=== PATIENT | female | born 1970 | race Caucasian/White ===

== ENCOUNTER → 2020-09-05 | Outpatient (CLI) | payer OTHER | END | disposition home or self-care (01) | LOC: CVU 13:01 | PROVIDERS: ATTEND Internal Medicine Cardiovascular Disease | DX: R00.2 Palpitations (principal) | CPT/HCPCS: 93306; 93356 ==

== ENCOUNTER 2020-10-19 11:15 | Day surgery (SDC) | payer OTHER ==
[~2020-10-19] VITALS: Ht 160 cm; Wt 65.0 kg
[2020-10-19] MEDS ORDERED: SODIUM CHLORIDE 0.9% 1,000 ML IV SCH (12:00)
[2020-10-19] MEDS ORDERED: ALPR0.5T7 PO (12:11)
[2020-10-19] MEDS ORDERED: HYDR1TAB16 PO (12:11)
[2020-10-19] MEDS ORDERED: MELO15TA6 PO (12:11)
[2020-10-19] MEDS ORDERED: METO25TA2 PO (12:11)
[2020-10-19 12:16] LABS: BASOPHILS % (AUTO) 1 % (0-1); EOSINOPHILS % (AUTO) 1 % (1-7); LYMPHOCYTES % (AUTO) 38 % (22-44); MEAN CORPUSCULAR HEMOGLOBIN 30.7 pg (27.0-34.8); MEAN CORPUSCULAR HGB CONC 33.9 g/dL (32.4-35.8); MEAN PLATELET VOLUME 7.3 fL (7.4-10.4); MONOCYTES % (AUTO) 9 % (2-9); NEUTROPHILS % (AUTO) 52 % (42-75); PLATELET COUNT 320 x10^3/uL (130-400); RED BLOOD COUNT 4.83 x10^6/uL (3.82-5.3); RED CELL DISTRIBUTION WIDTH 14.2 % (9.6-15.2)
[2020-10-19] MEDS ORDERED: MIDAZOLAM 1 MG/ML, 2ML ONE (12:21)
[2020-10-19] MEDS ORDERED: ISOPROTERENOL 0.2MG/ML, 5ML ONE (12:22)
[2020-10-19] MEDS ORDERED: LIDOCAINE 1%, 20ML ONE (12:22)
[2020-10-19] MEDS ORDERED: FENTANYL PF 100 MCG/2ML ONE (12:22)
[2020-10-19 12:26] LABS: INTERNATIONAL NORMALIZED RATIO 1.06 (0.93-1.1); PROTHROMBIN TIME 11.3 Seconds (9.6-11.5)
[2020-10-19 12:28] LABS: ANION GAP 7 mmol/L (5-15); CHLORIDE 111 mmol/L (98-107)
[2020-10-19 12:34] LABS: CREATININE 0.66 mg/dL (0.55-1.02)
[2020-10-19 14:32] VITALS: BP 110/70
[2020-10-19] MEDS ORDERED: ACETAMINOPHEN 325 MG TABLET ONE (15:43)
[2020-10-19] MEDS ORDERED: ACETAMINOPHEN 325 MG TABLET PO ONE (16:00)
== END 2020-10-19 18:47 | disposition home or self-care (01) ==
LOC: CACL 11:15 → 5SO 14:15 → CACL 18:47
PROVIDERS: ATTEND Internal Medicine Clinical Cardiac Electrophysiology
DX: I47.1 Supraventricular tachycardia (principal); Z79.01 Long term (current) use of anticoagulants; Z79.899 Other long term (current) drug therapy; Z91.041 Radiographic dye allergy status
CPT/HCPCS: 36415; 80048; 84703; 85025; 85610; 85730; 93005; 93613; 93620; 93623; 99156; 99157; C1730; C1894; C2630; J2250; J3010; G0378